=== PATIENT | male | born 1970 | race Caucasian/White ===

== ENCOUNTER 2022-01-26 00:07 | Inpatient (IN) | payer MEDICARE, OTHER ==
[~2022-01-26] VITALS: Ht 154.9 cm; Wt 59.4 kg
[2022-01-26 06:19] LABS: HEMOGLOBIN 13.3 gm/dl (14.0-17.5); RED BLOOD COUNT 4.81 M/UL (4.20-5.50); WHITE BLOOD COUNT 11.3 K/UL (4.5-11.0)
[2022-01-26 06:45] LABS: BUN/CREATININE RATIO 30 (0-10)
[2022-01-26] MEDS ORDERED: LISINOPRIL20 MG PO (11:17)
[2022-01-26] MEDS ORDERED: LEVOCETIRIZINE D5 MG PO (11:18)
[2022-01-26] MEDS ORDERED: ZOCOR40 MG PO (11:18)
[2022-01-26] MEDS ORDERED: OMEPRAZOLE20 MG PO (11:19)
[2022-01-27 06:31] LABS: HEMOGLOBIN 13.1 gm/dl (14.0-17.5); RED BLOOD COUNT 4.73 M/UL (4.20-5.50)
[2022-01-27 06:46] LABS: WHITE BLOOD COUNT 8.4 K/UL (4.5-11.0)
[2022-01-27 07:03] LABS: BUN/CREATININE RATIO 22 (0-10)
[2022-01-28 04:18] LABS: HEMOGLOBIN 13.1 gm/dl (14.0-17.5); RED BLOOD COUNT 4.76 M/UL (4.20-5.50)
[2022-01-28 04:56] LABS: BUN/CREATININE RATIO 24 (0-10)
[2022-01-29 03:32] LABS: HEMOGLOBIN 13.1 gm/dl (14.0-17.5); RED BLOOD COUNT 4.73 M/UL (4.20-5.50); WHITE BLOOD COUNT 10.2 K/UL (4.5-11.0)
[2022-01-29 04:01] LABS: BUN/CREATININE RATIO 30 (0-10)
[2022-01-30 03:19] LABS: HEMOGLOBIN 13.4 gm/dl (14.0-17.5); RED BLOOD COUNT 4.81 M/UL (4.20-5.50); WHITE BLOOD COUNT 9.9 K/UL (4.5-11.0)
[2022-01-30 03:48] LABS: BUN/CREATININE RATIO 26 (0-10)
[2022-01-31 06:23] LABS: HEMOGLOBIN 13.9 gm/dl (14.0-17.5); RED BLOOD COUNT 4.95 M/UL (4.20-5.50); WHITE BLOOD COUNT 10.1 K/UL (4.5-11.0)
[2022-01-31 06:41] LABS: BUN/CREATININE RATIO 29 (0-10)
[2022-02-01 06:36] LABS: HEMOGLOBIN 14.1 gm/dl (14.0-17.5); RED BLOOD COUNT 5.07 M/UL (4.20-5.50); WHITE BLOOD COUNT 10.9 K/UL (4.5-11.0)
[2022-02-01 07:29] LABS: BUN/CREATININE RATIO 32 (0-10)
[2022-02-01] MEDS ORDERED: ENOXAPARIN40 MG/0.4 SC (11:09)
--- NOTE | 2022-02-01 14:57 | NUR ---
REPORT CALLED TO [facility] AT [facility]. PATIENTS COUSIN TRANSPORTING PATIENT BY PRIVATE CAR. PATIENT IN STABLE CONDITION UPON LEAVING FACILITY.
== END 2022-02-01 14:54 | DRG 481 ==
LOC: ER1 00:07 → CDU 05:48 → M/S 07:05 → CDU 07:05 → M/S 18:04
PROVIDERS: Internal Medicine; Nurse Practitioner Family; Orthopaedic Surgery; Physician Assistant; ADMIT Internal Medicine
PROC: 0QS704Z Reposition Left Upper Femur with Internal Fixation Device, Open Approach (ICD-10-PCS; principal; 2022-01-27 13:00)
DX: S72.142A Displaced intertrochanteric fracture of left femur, initial encounter for closed fracture (principal); E87.1 Hypo-osmolality and hyponatremia; L03.116 Cellulitis of left lower limb; L03.115 Cellulitis of right lower limb; I10 Essential (primary) hypertension; E78.5 Hyperlipidemia, unspecified; J30.2 Other seasonal allergic rhinitis; W01.0XXA Fall on same level from slipping, tripping and stumbling without subsequent striking against object, initial encounter; Z96.661 Presence of right artificial ankle joint; Z96.662 Presence of left artificial ankle joint; F70 Mild intellectual disabilities; K21.9 Gastro-esophageal reflux disease without esophagitis; G80.9 Cerebral palsy, unspecified; Z98.890 Other specified postprocedural states; Z83.3 Family history of diabetes mellitus
CPT/HCPCS: 36415; 70450; 72192; 73502; 73552; 76000; 80048; 80053; 82550; 82553; 83605; 83735; 84100; 84439; 84443; 84484; 84550; 85025; 86850; 86900; 86901; 93005; 97110; 97110-GP-CQ; 97116-GP-CQ; 97162; 97165; 97530; 97530-GP-CQ; 99285; C1713; J0690; J1100; J1650; J2001; J2250; J2370; J2405; J2704; J2795; J3010; U0002